=== PATIENT | female | born 1955 ===

== ENCOUNTER 2020-12-16 11:45 | Inpatient (IN) | payer OTHER ==
[~2020-12-16] VITALS: Ht 160 cm; Wt 89.8 kg
[2020-12-16] MEDS ORDERED: METFORMIN HCL500 M3 PO (15:59)
[2020-12-16] MEDS ORDERED: SIMVASTATIN20 MG PO (16:00)
[2020-12-16] MEDS ORDERED: ADULT LOW DOSE81 M1 PO (16:00)
[2020-12-16] MEDS ORDERED: DILTIAZEM ER120 M2 PO (16:00)
[2020-12-16] MEDS ORDERED: LEVOTHYROXINE25 MCG PO (16:01)
== END 2020-12-23 17:42 | disposition home or self-care (01) | DRG 741 ==
LOC: OB/GYN 12-22 06:10 → O/R 12-22 06:10 → OB/GYN 12-22 11:45
PROVIDERS: ADMIT Obstetrics & Gynecology Gynecologic Oncology; ATTEND Obstetrics & Gynecology Gynecologic Oncology
PROC: 0UT24ZZ Resection of Bilateral Ovaries, Percutaneous Endoscopic Approach (ICD-10-PCS; 2020-12-22)
PROC: 0UB74ZZ Excision of Bilateral Fallopian Tubes, Percutaneous Endoscopic Approach (ICD-10-PCS; 2020-12-22)
PROC: 07BC4ZX Excision of Pelvis Lymphatic, Percutaneous Endoscopic Approach, Diagnostic (ICD-10-PCS; 2020-12-22)
PROC: 0UT94ZZ Resection of Uterus, Percutaneous Endoscopic Approach (ICD-10-PCS; principal; 2020-12-22 17:45)
DX: C54.1 Malignant neoplasm of endometrium (principal); E66.01 Morbid (severe) obesity due to excess calories; D25.1 Intramural leiomyoma of uterus